=== PATIENT | female | born 2000 | race Two or more races ===

== ENCOUNTER 2025-03-24 00:22 | Observation (INO) | payer MEDICAID ==
--- NOTE | 2025-03-24 00:43 | DVHDS2 ---
Physician Discharge Progress N Final Diagnosis: 25 yo with IUP at 25w6d Influenza B Gallstones Operations or Procedures: Operations or Procedures SUBJECTIVE Kamilah Watson is a 25 yo with IUP at 25w6d presenting for abdominal pain, nausea/vomiting, and shortness of breath Patient states that at 2300, she began feeling intermittent chest pain that comes and goes every 5 minutes with 9/10 intensity. It feels like someone is "punching" her in the center of her chest all the way through to her back. She states that at 0000, she threw up from the pain and started feeling like she couldn't take a full breath. Denies UCs, leaking fluid, or vaginal bleeding. States positive movement. Denies headache or blurry vision. Denies any pain on the R quadrant of her abdomen. Patient denies any sick contacts and states she is sniffling because she is allergic to the air vents of the hospital. She had four cups of water today. She last ate at 1800 and had beans, rice, and beef. PNC: good. getting care in [place] and transferring up here Review of Systems: Neuro: Mild dizziness. Heart: No complaints Lungs: Unable to get full breath GI: No current nausea. Abdominal pain as described above : No complaints Skin: No complaints Extremities: No complaints OBJECTIVE VSS. intermittent maternal tachycardia FHR: Baseline: 145 Variability: Moderate UCs: none noted Neuro: A&O x4. No apparent distress. Affect appropriate Heart: Regular rate and rhythm Lungs: Adventitious lung sounds bilaterally GI: Gravid. No tenderness Skin: Dry and intact. No rashes or lesions Extremities: Cap refill WNL. Flu: positive influenza B COVID: negative Abd US: pos gallstones ASSESSMENT 25 yo with IUP at 25w6d Not in labor Influenza B Gallstones PLAN -Appt with Dr Hussein on 03/31 for initial transfer of care visit -Discussed tamiflu and risks/benefits. Patient declines and states she does not want it -Discussed low fat/nonspicy diet for gallstones to prevent flare ups. If pain persists after , patient to follow up with primary care. Discussed nonpharmacologic and pharmacologic ways to alleviate pain -Discussed labor precautions and kick counts. Answered all patient questions and concerns. Patient verbalizes understanding Other Interventions Other Interventions ORDERING PHYSICIAN: DEEDEE LOPEZ CNM PROCEDURE(s): GBUS - GALLBLADDER REASON: ABD PAIN ORDER NUMBER(s): [id number], ACCESSION NUMBER(s): [id number] INDICATION: ABD PAIN TECHNIQUE: Multiple real-time sonographic images were obtained of the right upper quadrant. COMPARISON: None FINDINGS: The liver demonstrates homogenous echotexture without focal mass lesions. The liver is minimally enlarged measuring 15.9 cm. There is no intrahepatic or extrahepatic ductal dilatation. Mild hepatic steatosis. CBD not well visualized due to overlying bowel gas. Gallstone in the gallbladder. No times distention, sonographic conte's sign, or surrounding edema. The gallbladder wall measures 0.2 mm and is within normal limits. The right kidney measures 10.4 cm. The right kidney is normal in contour, size, and shape. The echogenicity is normal. There is no hydronephrosis. The pancreas is not well visualized due to overlying bowel gas. IMPRESSION: Gallstones without acute cholecystitis. Otherwise no clear cause for pain. Condition on Discharge: Good Disposition: Home Discharge Instructions: Diet: See Comment (low fat) Activity: No Restrictions, As Tolerated Medications: No change Follow Up Care: Discharge Statement: "Patient was advised to return to the ER or call 911 if any headaches, dizziness, shortness of breath, chest pain, abdominal pain, bleeding, fevers, or worsening of medical condition. Patient was counseled about treatment plan, medications, possible side effects, patientverbalized understanding. All questions were answered to the best of my ability. This discharge took greater then 30 minutes in planning, reviewing documentation, counseling the patient, and discussing with other team members." Visit Coding OBGYN Date of Service: Mar 24, 2025 Billing Provider: DEEDEE LOPEZ CNM [facility] Common Visit Codes: 72797-QPNLRWU INP/OBS CARE (HIGH) DEEDEE LOPEZ CNM Mar 24, 2025 00:43
--- NOTE | 2025-03-24 01:52 | DVH ---
INDICATION: ABD PAIN TECHNIQUE: Multiple real-time sonographic images were obtained of the right upper quadrant. COMPARISON: None FINDINGS: The liver demonstrates homogenous echotexture without focal mass lesions. The liver is minimally enlarged measuring 15.9 cm. There is no intrahepatic or extrahepatic ductal dilatation. Mild hepatic steatosis. CBD not well visualized due to overlying bowel gas. Gallstone in the gallbladder. No times distention, sonographic conte's sign, or surrounding edema. The gallbladder wall measures 0.2 mm and is within normal limits. The right kidney measures 10.4 cm. The right kidney is normal in contour, size, and shape. The echogenicity is normal. There is no hydronephrosis. The pancreas is not well visualized due to overlying bowel gas. IMPRESSION: Gallstones without acute cholecystitis. Otherwise no clear cause for pain.
[2025-03-24 02:03] LABS: COVID19 ANTIGEN SOFIA FIA NEGATIVE (NEGATIVE)
[2025-03-24] MEDS ORDERED: PREN-96 PO (02:21)
== END 2025-03-24 02:36 | disposition home or self-care (01) ==
LOC: LDRP 00:22
PROVIDERS: ADMIT Obstetrics & Gynecology; ATTEND Obstetrics & Gynecology
DX: O99.512 Diseases of the respiratory system complicating pregnancy, second trimester (principal); J10.1 Influenza due to other identified influenza virus with other respiratory manifestations; O26.612 Liver and biliary tract disorders in pregnancy, second trimester; K80.20 Calculus of gallbladder without cholecystitis without obstruction; Z3A.25 25 weeks gestation of pregnancy; Z20.822 Contact with and (suspected) exposure to COVID-19; Z98.890 Other specified postprocedural states; Z79.899 Other long term (current) drug therapy
CPT/HCPCS: 36415; 59025; 76705; 81002; 87426; 87804; 94760; G0378